=== PATIENT | female | born 1950 | race Two or more races ===

== ENCOUNTER 2024-07-07 10:14 | Inpatient (IN) | payer OTHER ==
[~2024-07-07] VITALS: Ht 160 cm; Wt 59.0 kg
[2024-07-07] MEDS ORDERED: PHENOBARBI20 MG/5 M1 (10:24)
[2024-07-07] MEDS ORDERED: LEVO-T88 MCG (10:24)
[2024-07-07] MEDS ORDERED: PHENYTOIN SODI200 MG (10:24)
[2024-07-07] MEDS ORDERED: PEPCID AC10 MG (10:24)
[2024-07-07] MEDS ORDERED: 0.9 % SODIUM CHLORIDE 1,000 ML IV SCH ×2 (10:45→19:15)
[2024-07-07 11:19] LABS: HEMATOCRIT 38.4 % (36.0-45.00); HEMOGLOBIN 12.6 g/dL (12.0-15.00); MEAN CELL VOLUME 103.1 fL (80.00-100.00); MEAN CORPUSCULAR HEMOGLOBIN 33.8 pg (27.00-32.0); MEAN CORPUSCULAR HGB CONC 32.8 g/dl (32.0-36.0); PLATELET COUNT 256 K/uL (150-450); RED BLOOD COUNT 3.72 M/uL (4.00-6.00); RED CELL DISTRIBUTION WIDTH 14.2 % (11.5-14.5)
[2024-07-07 11:44] LABS: CALCIUM 9.5 mg/dL (8.5-10.1); CREATININE SERUM 0.58 mg/dL (0.55-1.02); GFR 102.19; POTASSIUM 3.71 mEq/L (3.5-5.1)
[2024-07-07 11:52] LABS: PH,URINE 5.5 (5.0-8.0); URINE APPEARANCE Cloudy; URINE BILIRRUBIN Negative (NEGATIVE); URINE BLOOD Trace; URINE COLOR Yellow; URINE GLUCOSE Negative (NEGATIVE); URINE LEUKOCYTE Large; URINE NITRATE Positive; URINE PROTEIN 30 (NEGATIVE); URINE UROBILINOGEN 0.2 E.U./dl
[2024-07-07 11:54] LABS: URINE BACTERIA 4404.8 uL (0.0-1933); URINE EPITHELIAL CELLS 30.4 uL (0.0-38.8); URINE RBC 3.6 uL (0.0-20.8)
[2024-07-07 11:55] LABS: URINE CAST 1.37 uL (0.0-1.40); URINE KETONE 80 (NEGATIVE)
[2024-07-07] MEDS ORDERED: ONDANSETRON HCL 4 MG in 0.9 % SODIUM CHLORIDE 50 ML IV PRN (19:15)
[2024-07-07] MEDS ORDERED: ACETAMINOPHEN 500 MG GEL..CAP PO PRN (19:15)
[2024-07-07] MEDS ORDERED: IPRATROPIUM BROMIDE 0.5 MG/2.5 ML AMPUL.NEB IH SCH (19:30)
[2024-07-07] MEDS ORDERED: LEVALBUTEROL HCL 1.25 MG/3 ML SOLUTION IH SCH (19:30)
[2024-07-07] MEDS ORDERED: LevETIRAcetam 500 MG/5 ML VIAL IV SCH (21:00)
[2024-07-07 22:16] VITALS: BP 115/88; O2SAT 98
[2024-07-07 22:21] LABS: INR 1.08; PARTIAL THROMBOPLASTIN TIME 25.5 SECONDS (22.0-34.0); PROTHROMBIN TIME 11.7 SECONDS (9.0-11.5)
[2024-07-07 23:49] VITALS: BP 100/53; O2SAT 96
[2024-07-08] VITALS (7 sets, daily range): BP systolic 122–140; BP diastolic 75–81; O2SAT 96–99
[2024-07-08] MEDS ORDERED: LEVOTHYROXINE SODIUM 88 MCG TABLET PO SCH (06:00)
[2024-07-08] MEDS ORDERED: FAMOTIDINE/PF 20 MG in 0.9 % SODIUM CHLORIDE 8 ML IV PUSH SCH (09:00)
[2024-07-08] MEDS ORDERED: CEFTRIAXONE SODIUM 2,000 MG in 0.9 % SODIUM CHLORIDE 100 ML IV SCH (17:00)
[2024-07-09] VITALS (9 sets, daily range): BP systolic 143–148; BP diastolic 80–82; O2SAT 90–99
[2024-07-09 18:50] LABS: HEMATOCRIT 35.3 % (36.0-45.00); MEAN CELL VOLUME 101.6 fL (80.00-100.00); MEAN CORPUSCULAR HEMOGLOBIN 34.6 pg (27.00-32.0); PLATELET COUNT 293 K/uL (150-450); RED BLOOD COUNT 3.47 M/uL (4.00-6.00); RED CELL DISTRIBUTION WIDTH 14.4 % (11.5-14.5)
[2024-07-09 19:31] LABS: ALBUMIN 3.3 gm/dL (3.4-5.0); BILIRUBIN TOTAL 0.23 mg/dL (0.3-1.2); CALCIUM 9.3 mg/dL (8.5-10.1); CREATININE SERUM 0.4 mg/dL (0.55-1.02); GFR 156.9; GLOBULINA 3.8 G/DL (2.4-3.5); POTASSIUM 3.11 mEq/L (3.5-5.1); TOTAL PROTEIN 7.1 gm/dL (6.4-8.2)
[2024-07-09 20:41] LABS: PHENYTOIN 34.4 Ug/ml (10.0-20.0)
[2024-07-10 00:15] VITALS: BP 105/67; O2SAT 99
[2024-07-10 01:00] VITALS: O2SAT 96
[2024-07-10 05:00] VITALS: O2SAT 70
[2024-07-10 09:04] VITALS: BP 125/75; O2SAT 100
[2024-07-10 09:49] VITALS: O2SAT 99
[2024-07-10 12:45] VITALS: O2SAT 93
== END 2024-07-10 14:36 | disposition home or self-care (01) | DRG 690 ==
LOC: ER 10:14 → SEC-K 20:49 → MEDI 20:49
PROVIDERS: Emergency Medicine; General Practice; ADMIT Internal Medicine; ATTEND Internal Medicine
PROC: BW28ZZZ Computerized Tomography (CT Scan) of Head (ICD-10-PCS; principal; 2024-07-07)
PROC: BW38ZZZ Magnetic Resonance Imaging (MRI) of Head (ICD-10-PCS; 2024-07-07)
PROC: 4A12X4Z Monitoring of Cardiac Electrical Activity, External Approach (ICD-10-PCS; 2024-07-08)
DX: N39.0 Urinary tract infection, site not specified (principal); B96.20 Unspecified Escherichia coli [E. coli] as the cause of diseases classified elsewhere; T42.0X1A Poisoning by hydantoin derivatives, accidental (unintentional), initial encounter; G40.909 Epilepsy, unspecified, not intractable, without status epilepticus; E03.9 Hypothyroidism, unspecified
CPT/HCPCS: 70544